=== PATIENT | female | born 1960 | race Caucasian/White ===

== ENCOUNTER 2023-02-07 16:39 | Emergency (ER) | payer BC ==
[2023-02-07] MEDS ORDERED: HYDROcodone/Acetaminophen 5/325 mg Tablet ONE (20:49)
== END 2023-02-07 20:52 | disposition home or self-care (01) ==
LOC: CSHERS 16:39
DX: M25.552 Pain in left hip (principal); G43.909 Migraine, unspecified, not intractable, without status migrainosus; E03.9 Hypothyroidism, unspecified; Z79.899 Other long term (current) drug therapy

== ENCOUNTER 2023-04-25 10:29 | Outpatient (CLI) | payer BC | END 2023-04-25 10:30 | disposition home or self-care (01) | LOC: CSHULT 10:29 | PROVIDERS: ATTEND Internal Medicine Rheumatology | DX: R60.0 Localized edema (principal) | CPT/HCPCS: 93970 ==